=== PATIENT | female | born 1960 | race Caucasian/White ===

== ENCOUNTER → 2022-03-08 | Outpatient (CLI) | payer OTHER ==
[2022-03-08 12:02] LABS: ALANINE AMINOTRANSFERASE 24 U/L (0-55)
--- NOTE | 2022-03-08 15:46 | Diagnostic Imaging Report ---
EXAMINATION: PA and lateral chest at 1121 hours. INDICATION: Malignant neoplasm of skin. COMPARISON: None. FINDINGS: The heart size is within normal limits. The lungs are clear. There is no evidence for failure, pneumonia, or for a pleural effusion. The mediastinum is not widened. The osseous structures are intact. IMPRESSION: There is no evidence for active disease. Dictated by: Dictated on workstation # [id number]
== END ==
LOC: LAB FS 11:03
DX: Z08 Encounter for follow-up examination after completed treatment for malignant neoplasm (principal); C44.90 Unspecified malignant neoplasm of skin, unspecified; D23.9 Other benign neoplasm of skin, unspecified; Z85.828 Personal history of other malignant neoplasm of skin; D22.62 Melanocytic nevi of left upper limb, including shoulder; D22.5 Melanocytic nevi of trunk; D22.71 Melanocytic nevi of right lower limb, including hip; D22.72 Melanocytic nevi of left lower limb, including hip; L81.4 Other melanin hyperpigmentation; L82.1 Other seborrheic keratosis
CPT/HCPCS: 36415; 71046; 83615; 84450; 84460